=== PATIENT | male | born 1995 | race Caucasian/White ===

== ENCOUNTER 2016-08-04 12:05 | Day surgery (SDC) | payer OTHER ==
[2016-08-03 14:25] VITALS: BMI 33.1
[2016-08-04] MEDS ORDERED: MIDAZOLAM HCL 2 MG/2 ML SINGLE DOSE VIAL ONE (14:23)
[2016-08-04] MEDS ORDERED: PROPOFOL 20 ML ONE ×2 (14:34)
[2016-08-04] MEDS ORDERED: ceFAZolin SODIUM 1 GM VIAL ONE (14:51)
[2016-08-04] MEDS ORDERED: ONDANSETRON 4 MG/2 ML VIAL IVPUSH PRN (15:46)
[2016-08-04] MEDS ORDERED: oxyCODONE HCL 5 MG TABLET PO PRN (15:46)
[2016-08-04] MEDS ORDERED: ONDANSETRON 4 MG/2 ML VIAL ONE ×2 (15:54→16:20)
[2016-08-04] MEDS ORDERED: LACTATED RINGERS SOLUTION 1,000 ML IV SCH (16:00)
[2016-08-04] MEDS ORDERED: oxyCODONE HCL 5 MG TABLET ONE (16:54)
[2016-08-04 17:04] VITALS: TEMP 98.2
[2016-08-04 17:47] VITALS: BP 125/80; PULSE 83
--- NOTE | 2016-08-06 08:14 | OP ---
DATE OF OPERATION: 08/04/2016 PREOPERATIVE DIAGNOSIS: Left complex irreducible dislocation of metacarpophalangeal joint to the thumb. POSTOPERATIVE DIAGNOSIS: Left complex irreducible dislocation of metacarpophalangeal joint to the thumb. OPERATIVE PROCEDURE: Open reduction of left thumb metacarpophalangeal joint dislocation. SURGEON: Favio Montalvo MD ANESTHESIA: General. COMPLICATIONS: None. ESTIMATED BLOOD LOSS: Minimal. INDICATIONS FOR PROCEDURE: The patient is a 20-year-old male with the above findings, indicated for operative treatment. The risks, benefits, and alternatives were discussed with the patient at length, and proper informed consent was obtained. PROCEDURE: After proper identification of the patient and the correct operative site, the patient was brought to the operating room and placed supine on the operating table with prominences well padded. General anesthesia was provided by the anesthesiologist adequate for the procedure. Left upper extremity was prepped and draped in the usual sterile fashion. Well-padded tourniquet was placed with a sterile prep. Esmarch bandage used to exsanguinate the left upper extremity. Tourniquet inflated to 250 mmHg. Under live fluoroscopy, the joint was attempted to be reduced, but it was unsuccessful. Therefore, a dorsal incision was made over the metacarpophalangeal joint. Incision was taken sharply through the skin with blunt and sharp dissection through subcutaneous tissues. Interval between the EPL and EPB was developed, and the dorsal capsule was released. A Watchung was used to try and free any soft tissues within the joint. However, the joint remained irreducible. It appeared that there was a trapped sesamoid bone and possibly a fracture of the sesamoid bone. At this point, a volar incision was made in a Lydia fashion. Incision was taken sharply through the skin with blunt and sharp dissection through subcutaneous tissues. A1 staci was released, and the flexor tendon was released. The joint capsule volarly was found to be divided, and the volar plate was ruptured. The volar plate along with the sesamoids was trapped within the joint, and one of the sesamoids was fractured. The volar plate was released and the fractured sesamoid was excised, and the joint was able to be reduced and found to be stable except for the hyperextending of the thumb. The wounds were irrigated with copious amounts of normal saline, the volar plate was repaired, and the incisions were repaired in layers. A radiograph confirmed stable reduction throughout motion. Sterile dressings and a splint were placed. The patient was reversed from anesthesia and brought to the recovery room in stable condition. He tolerated the procedure well. FAVIO MONTALVO M.D. [id number]
== END 2016-08-04 17:47 | disposition home or self-care (01) ==
LOC: FASU 12:05
PROVIDERS: ATTEND Orthopaedic Surgery Hand Surgery
PROC: 0RSV04Z Reposition Left Metacarpophalangeal Joint with Internal Fixation Device, Open Approach (ICD-10-PCS; principal; 2016-08-04 14:53)
DX: S63.115A Dislocation of metacarpophalangeal joint of left thumb, initial encounter (principal); X58.XXXA Exposure to other specified factors, initial encounter; Y93.9 Activity, unspecified; Y92.9 Unspecified place or not applicable
CPT/HCPCS: 73130-TC-LT; 94760